=== PATIENT | male | born 1955 | race Caucasian/White ===

== ENCOUNTER 2017-03-03 08:09 | Day surgery (SDC) | payer BC ==
--- NOTE | 2017-03-05 08:12 | OR ---
ADMIT: 03/03/2017 RM/LOC: [facility] MR#: [id number] [place] [id number] VIJAY COBOS [address] [place] [address] Operative/Delivery Room Report SEX: M AGE: 62 : 1955 SURGERY DATE: 03/03/2017 SURGEON: Dwaine Todd MD ORDNANCE KEEPER: None. PREOPERATIVE DIAGNOSES: 1. Cervical spondylosis. 2. Cervicalgia. 3. Chronic daily headache. POSTOPERATIVE DIAGNOSES: 1. Cervical spondylosis. 2. Cervicalgia. 3. Chronic daily headache. OPERATION: Bilateral C2-C3 block. INDICATION FOR PROCEDURE: The patient is a pleasant gentleman with history of chronic neck pain with headache secondary to above-mentioned diagnoses, comes here for planned C2 and C3 cervical medial branch block. ANESTHESIA: Local without sedation. ESTIMATED BLOOD LOSS: Zero. COMPLICATIONS: None immediately evident. DESCRIPTION OF PROCEDURE: After the patient was seen in the preoperative area, vital signs were taken prior to the procedure. The risks, benefits, and alternative therapies were discussed at length. Patient consent was obtained and updated. The patient was taken to Fluoroscopy Suite and placed on the fluoroscopy table in the prone position. Pressure points were padded to comfort., monitor applied, and a timeout performed. Next, the patient's jaw was turned to the left side. The patient was monitored throughout the procedure. The patient's cervical area was then prepped and draped in a sterile pattern using ChloraPrep. C-arm fluoroscopy was then brought in to identify the C2-C3 junction and C3 waist on the right ADMIT: 03/03/2017 RM/LOC: [facility] MR#: [id number] [place] [id number] VIJAY COBOS Jacque [address] [place] [address] Operative/Delivery Room Report SEX: M AGE: 62 : 1955 side. A 22-gauge curved-tip spinal needle was then advanced and made contact with the C2-C3 junction and C3 waist on the right side. Then we put in Isovue- 300 to confirm the placement. Then I injected 1 ml of solution consisting of 5 mL of dexamethasone with 0.25% bupivacaine distributed at each level. Then I moved on to the left side and repeated the same procedure. On examination twenty minutes after the procedure, the patient had 40% pain relief and range of motion was full at the neck. FOLLOWUP: We will see the patient back for a second set of procedure in one week. Dwaine Todd MD/ haydee JOB #: [id number] CC: Dwaine Todd, Attending Physician Pancho Gutierrez, Family Physician
== END 2017-03-03 09:30 | disposition home or self-care (01) ==
LOC: SSS 08:09
PROC: 3E0T33Z Introduction of Anti-inflammatory into Peripheral Nerves and Plexi, Percutaneous Approach (ICD-10-PCS; principal; 2017-03-03)
PROC: BR14YZZ Fluoroscopy of Cervical Facet Joint(s) using Other Contrast (ICD-10-PCS; principal; 2017-03-03)
PROC: 3E0T3BZ Introduction of Anesthetic Agent into Peripheral Nerves and Plexi, Percutaneous Approach (ICD-10-PCS; principal; 2017-03-03)
DX: G89.29 Other chronic pain (principal); M47.812 Spondylosis without myelopathy or radiculopathy, cervical region; R51 Headache; Z79.899 Other long term (current) drug therapy; Z88.0 Allergy status to penicillin; Z88.8 Allergy status to other drugs, medicaments and biological substances